=== PATIENT | female | born 1945 ===

== ENCOUNTER 2019-09-17 09:36 | Inpatient (IN) | payer OTHER ==
[~2019-09-17] VITALS: Ht 152.4 cm; Wt 55.8 kg
[2019-09-17] MEDS ORDERED: GLUMETZA500 MG PO (10:24)
[2019-09-17] MEDS ORDERED: COZAAR100 MG PO (10:24)
[2019-09-17] MEDS ORDERED: [UNRECOGNIZED DRUG - SUPPLY] (10:25)
[2019-09-17] MEDS ORDERED: SINGULAIR10 MG (10:25)
[2019-09-17] MEDS ORDERED: ANASTROZOLE1 MG PO (10:34)
[2019-09-22] MEDS ORDERED: SIMVASTATIN20 MG PO (08:18)
[2019-09-22] MEDS ORDERED: FAMOTIDINE40 MG PO (08:18)
[2019-09-22] MEDS ORDERED: GABAPENTIN600 MG PO (08:19)
[2019-09-22] MEDS ORDERED: OMEPRAZOLE40 MG PO (08:19)
[2019-09-22] MEDS ORDERED: ZYLOPRIM300 MG PO (08:19)
[2019-09-22] MEDS ORDERED: HYDROCHLOROTHIA25 MG PO (08:19)
== END 2019-09-24 17:23 | disposition home or self-care (01) | DRG 330 ==
LOC: O/R 09-22 06:00 → SURH 09-22 06:00 → O/R 09-22 10:00 → SURH 09-22 10:00
PROVIDERS: ADMIT Colon & Rectal Surgery
PROC: 0DBN4ZZ Excision of Sigmoid Colon, Percutaneous Endoscopic Approach (ICD-10-PCS; 2019-09-22)
PROC: 0DBP4ZZ Excision of Rectum, Percutaneous Endoscopic Approach (ICD-10-PCS; 2019-09-22)
PROC: 0TQB4ZZ Repair Bladder, Percutaneous Endoscopic Approach (ICD-10-PCS; 2019-09-22)
PROC: 0DBP4ZZ Excision of Rectum, Percutaneous Endoscopic Approach (ICD-10-PCS; principal; 2019-09-22 07:00)
DX: K57.20 Diverticulitis of large intestine with perforation and abscess without bleeding (principal); N32.1 Vesicointestinal fistula

== ENCOUNTER 2020-09-23 09:20 | Day surgery (SDC) | payer OTHER ==
[~2020-09-23 09:20] MED LIST: ANASTROZOLE1 MG PO; COZAAR100 MG PO; FAMOTIDINE40 MG PO; GABAPENTIN600 MG PO; GLUMETZA500 MG PO; HYDROCHLOROTHIA25 MG PO; OMEPRAZOLE40 MG PO; SIMVASTATIN20 MG PO; SINGULAIR10 MG; ZYLOPRIM300 MG PO; [UNRECOGNIZED DRUG - SUPPLY]
== END 2020-09-23 17:00 | disposition home or self-care (01) ==
LOC: AMB-ENDOS 09:20
PROVIDERS: ATTEND Colon & Rectal Surgery
DX: D12.4 Benign neoplasm of descending colon (principal); K64.1 Second degree hemorrhoids; Z20.822 Contact with and (suspected) exposure to COVID-19